=== PATIENT | male | born 1955 | race Caucasian/White ===

== ENCOUNTER → 2018-09-25 | Outpatient (CLI) | payer BC ==
--- NOTE | 2018-09-25 14:52 | XR ---
Abdomen HISTORY: Right lower quadrant pain and hematuria Frontal view of the abdomen on 2 images Lung bases are clear. There is no evident bowel obstruction or pneumoperitoneum. No pathologic calcif ication is evident. Mild osteoarthritic change present in the right hip. IMPRESSION: Nonspecific bowel gas pattern.
== END | disposition home or self-care (01) ==
LOC: RADXRYALE 09:58
PROVIDERS: ATTEND Family Medicine
DX: R10.813 Right lower quadrant abdominal tenderness (principal); R31.29 Other microscopic hematuria
CPT/HCPCS: 74018

== ENCOUNTER → 2018-10-01 | Outpatient (CLI) | payer BC ==
--- NOTE | 2018-10-01 15:09 | MR ---
EXAMINATION TYPE: MR shoulder RT wo con DATE OF EXAM: 10/01/2018 COMPARISON: None HISTORY: Pain in right shoulder TECHNIQUE: Multiplanar, multisequence imaging of the right shoulder is performed without contrast. FINDINGS: Postsurgical changes with susceptibility artifact are at the shoulder. Rotator Cuff: No muscle retraction is evident. There may be some mild fatty infiltration of the supra spinatus and infraspinatus muscles. However, no tendon rupture or retraction is evident. There is sug gestion of small perforation near the junction of these 2 tendons on the sagittal images. Series 601 image 18 Acromioclavicular Joint: Mild acromioclavicular joint hypertrophy is present. Glenohumeral Joint: Humerus articulates with the glenoid. Labrum: Posterior glenoid labrum is poorly visualized. Anterior superior glenoid labrum appear intact Biceps Tendon: The long head of biceps tendon is in the bicipital groove. Tendon appears somewhat sma ll. Bone marrow signal: No focal abnormal marrow signal is appreciated. Other: No significant joint effusion is evident. No significant fluid in the subacromial bursa or sub deltoid bursa present IMPRESSION: 1. Postsurgical changes from prior. 2. Changes suggestive for perforation of the supraspinatus tendon near the junction with the infraspi natus tendon.
== END | disposition home or self-care (01) ==
LOC: RADMRIMAIN 09:23
PROVIDERS: ATTEND Orthopaedic Surgery
DX: M25.511 Pain in right shoulder (principal); Z98.890 Other specified postprocedural states

== ENCOUNTER → 2018-10-14 | Outpatient (CLI) | payer BC ==
[2018-10-14 08:05] LABS: Potassium 4.5 mmol/L (3.5-5.1)
[2018-10-14 08:11] LABS: Basophils % (A) 1 %; Eosinophils # (A) 0.2 k/uL (0-0.7); Eosinophils % (A) 4 %; HCT 48.3 % (39.0-53.0); HGB 15.9 gm/dL (13.0-17.5); Lymphocytes # (A) 1.9 k/uL (1.0-4.8); Lymphocytes % (A) 35 %; MCH 30.1 pg (25.0-35.0); MCV 91.1 fL (80.0-100.0); Mean Platelet Volume 7.7; Monocytes # (A) 0.3 k/uL (0-1.0); Monocytes % (A) 6 %; Neutrophils # (A) 2.7 k/uL (1.3-7.7); Neutrophils % (A) 51 %; Platelet Count 210 k/uL (150-450); RDW 13.8 % (11.5-15.5); WBC 5.4 k/uL (3.8-10.6)
== END | disposition home or self-care (01) ==
LOC: LABPAT 07:12
PROVIDERS: ATTEND Orthopaedic Surgery
DX: Z01.818 Encounter for other preprocedural examination (principal); M75.41 Impingement syndrome of right shoulder; Z01.812 Encounter for preprocedural laboratory examination
CPT/HCPCS: 36415; 80051; 85025; 93005

== ENCOUNTER 2018-10-29 05:44 | Day surgery (SDC) | payer BC ==
[2018-10-20 14:04] VITALS: BMI 37.8
--- NOTE | 2018-10-28 14:36 | HP ---
HISTORY AND PHYSICAL DATE OF SURGERY: 10/29/2018 Baron Roca is a 63-year-old patient seen with progressive right shoulder pain. We discussed treatment options with him. He elected to proceed with arthroscopy. Consent was obtained. PAST MEDICAL HISTORY: Hypertension. PAST SURGICAL HISTORY: Right shoulder arthroscopy. DAILY MEDICATION: Norvasc. ALLERGIES: PENICILLIN. SOCIAL HISTORY: Denies tobacco use. PHYSICAL EVALUATION RIGHT SHOULDER: Flexion 150 degrees, abduction 130 degrees, external rotation is 30 degrees with weakness and pain and tenderness along the anterolateral acromion rotator cuff insertion site. Impingement sign is positive at 90 degrees. Drop-arm sign is positive. Distal neurovascular exam is intact. RADIOGRAPHS: Right shoulder revealed a type 2 anterior acromion. Cystic changes of the greater tuberosity. A right shoulder MRI revealed a perforation through the rotator cuff. IMPRESSION: 1. Right shoulder impingement with rotator cuff tear. 2. Hypertension. PLAN: Right shoulder arthroscopy with subacromial decompression, possible arthroscopic rotator cuff repair, probable Alyssa procedure and debridement. MMODL / IJN: [id number] /
[~2018-10-29 05:44] MED LIST: DEXAMETHASONE SOD PHOSPHATE 10 MG/ML 1 ML VIAL IV ONE; HYDROmorphone 0.5 MG/0.5 ML SYRINGE IVP PRN; KETOROLAC 30 MG/ML 1 ML VIAL IVP SCH; LACTATED RINGERS 1,000 ML IV SCH; LIDOCAINE 1% 20 ML VIAL (10MG/ML) FOR IV START INTRADERMA PRN; METOCLOPRAMIDE 5 MG/ML 2 ML VIAL IVP PRN; ONDANSETRON 4 MG/2 ML VIAL IVP ONE; ceFAZolin 3 GM in SODIUM CHLORIDE 0.9% 100 ML IVPB ONE
[2018-10-29 06:26] VITALS: RESP 16
[2018-10-29] MEDS ORDERED: fentaNYL (PF) 50 MCG/ML 2 ML AMP IV ONE (06:43)
[2018-10-29] MEDS ORDERED: MIDAZOLAM (PF) 2 MG/2 ML VIAL IV ONE (06:43)
[2018-10-29] MEDS ORDERED: PROPOFOL 10 MG/ML 20 ML VIAL IV ONE (07:26)
[2018-10-29] MEDS ORDERED: LIDOCAINE 1% INJ 10MG/ML (20 ML MDV) ONE (07:26)
[2018-10-29] MEDS ORDERED: SUCCINYLCHOLINE CHLORIDE 100 MG/5 ML SYR IV ONE (07:26)
[2018-10-29] MEDS ORDERED: fentaNYL (PF) 50 MCG/ML 2 ML AMP ONE (07:26)
[2018-10-29] MEDS ORDERED: ROPIVACAINE 5 MG/ML 30 ML VIAL ONE (07:26)
[2018-10-29] MEDS ORDERED: DEXAMETHASONE SOD PHOSPHATE 4 MG/ML 1 ML VIAL ONE (07:26)
--- NOTE | 2018-10-29 07:51 | P.ONQ ---
Anesthesiology Proc Note - PNB - Peripheral Nerve Block Performed Right Interscalene Single Time Out Performed: Yes Procedure Start Time: 06:43 Indication: Acute Post-Operative Pain Specifically requested for management of pain by DrLeandra: Flo Suárez Sedation Type: Sedate with meaningful contact maintained Preparation: Sterile Prep Position: Supine Catheter: None Needle Types: Other (see comment) (Pajunk) Needle Size: 50mm (2") Needle Gauge: 21 Technique: Ultrasound Injectate: 0.5% Ropivacaine (see comment for volume) (20) Blood Aspirated: No Pain Paresthesia on Injection Noted: No Resistance on Injection: Normal Events: Uneventful and Well Tolerated
--- NOTE | 2018-10-29 09:27 | P.OP ---
Date of Procedure: 10/29/18 Preoperative Diagnosis: Right shoulder impingement Postoperative Diagnosis: 1. Right shoulder rotator cuff tear 2. Right shoulder impingement 3. Right shoulder acromioclavicular joint osteoarthritis 4. Right shoulder partial long head biceps tendon tear 5. Right shoulder superficial labral tear Procedure(s) Performed: 1. Right shoulder arthroscopic rotator cuff repair 2. Right shoulder arthroscopic subacromial decompression 3. Right shoulder arthroscopic Alyssa procedure 4. Right shoulder arthroscopic biceps tenotomy 5. Right shoulder arthroscopic debridement labral tear Implants: 44.75 Arthrex swivel lock anchors Anesthesia: GETA, regional (Interscalene block) Surgeon: Flo Suárez Shop Mechanic Helper #1: Wayne Araya Estimated Blood Loss (ml): 10 Pathology: none sent Condition: stable Disposition: PACU Indications for Procedure: 63-year-old patient seen with progressive right shoulder pain. After treatment options were discussed, he elected to proceed with arthroscopy. Operative Findings: See description of procedure Description of Procedure: Patient underwent an interscalene block by department of anesthesia for postoperative pain management. The patient was then taken to the operative suite. The patient underwent a general anesthetic by the department of anesthesia. The patient was placed into a lateral position and secured. There was appropriate padding of the bony prominence. Right shoulder was then prepped and draped in normal sterile orthopedic fashion. We placed the extremity in 10 pounds of longitudinal traction. A posterior incision was now made for a posterior working portal site. The trocar and cannula were inserted into the glenohumeral joint. Arthroscopy was initiated. Spinal needle was now inserted anteriorly, to ascertain the anterior working portal site. An incision was now made in that area, a trocar was inserted followed by a probe. There was some superficial tearing of the superior and anterior labrum. There was partial tearing long head biceps tendon with hyperemia. There was a well-visualized rotator cuff tear from the glenohumeral side. I performed an arthroscopic biceps tenotomy. I debrided the superficial labral tear down to stable tissue. Residual labrum was stable. Instruments now removed from the glenohumeral joint. Utilizing the posterior working portal site, the trocar and cannula were inserted into the subacromial space. Arthroscopy initiated. I made an incision 2 fingerbreadths lateral to the acromion. I introduced my trocar followed by my ArthroCare ablator. I now began ablating thick subacromial bursal tissue, which exposed the undersurface of the anterior acromion. There was diminished subacromial space. There was a very prominent anterior acromion. A motorized bur was introduced and a subacromial decompression was performed. I also excised some osteophytes off the inferior aspect of the distal clavicle. The AC joint was visualized and noted to be fairly arthritic. The motorized bur was introduced in the anterior portal site and a Alyssa procedure was performed without difficulty, decompressing the AC joint nicely. I turned my attention to the rotator cuff. There was a 22.5 cm rotator cuff tear. I debrided the margins getting down to stable tendon tissue. I introduced my motorized bur and abraded the footprint area, getting some petechial bleeding. I now made an accessory portal site off the lateral aspect of the acromion. I punched 2 holes medial for medial row fixation with the assistance of Warren MANCIA carefully tapping the punch with a mallet as I held the punch and the camera. I now introduced both anchors into the pre-punched holes and Warren MANCIA tapped them with the mallet as I held anchors and the camera. Warren MANCIA now screwed the anchors in place a while I held the anchor guide and camera. All 8 limbs of suture were now passed through good bites of rotator cuff tendon. I now punched 2 holes for lateral row fixation again I held the punch and camera while Warren MANCIA used a mallet to tap in the punch. We now passed sutures through both anchors and individually I introduced the anchors into the pre-punc h holes I held the anchor guide in position with one hand holding the camera with the other hand while Warren MANCIA tensioned the sutures and screwed in the anchors one at a time. All residual suture limbs were now clipped. We had good compression of the tendon along the entire footprint. I injected 1 mL Renue intra-articular. Instruments now removed from the portal sites. All portal sites were approximated with nylon suture. Sterile dressings were applied followed by a shoulder immobilizer. Wayne MANCIA assisted in this complex case. The patient was awakened, transferred to a bed, and taken to recovery in stable condition.
[2018-10-29 09:29] VITALS: TEMP 97.6
[2018-10-29 10:48] VITALS: BP 118/79; PULSE 70
== END 2018-10-29 11:23 | disposition home or self-care (01) ==
LOC: OR 05:44
PROVIDERS: ATTEND Orthopaedic Surgery
DX: M75.101 Unspecified rotator cuff tear or rupture of right shoulder, not specified as traumatic (principal); M75.41 Impingement syndrome of right shoulder; M19.011 Primary osteoarthritis, right shoulder; S46.111A Strain of muscle, fascia and tendon of long head of biceps, right arm, initial encounter; S43.431A Superior glenoid labrum lesion of right shoulder, initial encounter; X58.XXXA Exposure to other specified factors, initial encounter; M25.711 Osteophyte, right shoulder; G47.33 Obstructive sleep apnea (adult) (pediatric); Z99.89 Dependence on other enabling machines and devices; I10 Essential (primary) hypertension; Z79.899 Other long term (current) drug therapy; Z88.0 Allergy status to penicillin
CPT/HCPCS: 64415; 29826; 29827; 29824; C1713 ×2; C1765; J1100 ×2; J2405; J2001; J3010; J2795; J0330; J2704; J2250

== ENCOUNTER → 2019-02-09 | Outpatient (CLI) | payer BC ==
--- NOTE | 2019-02-09 10:41 | XR ---
EXAMINATION TYPE: XR knee complete RT DATE OF EXAM: 02/09/2019 COMPARISON: NONE HISTORY: Pain TECHNIQUE: Four views are submitted. FINDINGS: A mild narrowing of the patellofemoral joint and medial compartment of the knee joint. Tiny spurs inv olving the patella. Small suprapatellar bursal fluid collection.. Osseous structures are intact. No acute fracture seen. IMPRESSION: 1. No acute fracture or dislocation. 2. Mild arthropathy.
== END | disposition home or self-care (01) ==
LOC: RADXRYALE 10:03
PROVIDERS: ATTEND Physician Assistant Medical
DX: M17.11 Unilateral primary osteoarthritis, right knee (principal)

== ENCOUNTER → 2019-03-02 | Outpatient (CLI) | payer BC ==
--- NOTE | 2019-03-02 07:32 | MR ---
EXAMINATION TYPE: MR knee RT wo con DATE OF EXAM: 03/02/2019 COMPARISON: Right knee x-rays February 09, 2019 HISTORY: Pain in right knee per order. Pain and swelling for 1 month per patient. TECHNIQUE: Multiplanar, multisequence images of the knee is performed without IV contrast. FINDINGS: MEDIAL MENISCUS: Anterior horn is intact without tear. Triangular-shaped increased signal posterior h orn extends towards central body sagittal image 6, does not definitively extend to articular surface. LATERAL MENISCUS: Anterior and posterior horns are intact without tear. CRUCIATE LIGAMENTS: The anterior and posterior cruciate ligaments are intact and unremarkable. COLLATERAL LIGAMENTS: The medial collateral ligament and lateral collateral ligament complex are inta ct and unremarkable. EXTENSOR MECHANISM: Visualized quadriceps and patellar tendons are intact. EFFUSION: Moderate to large size suprapatellar joint effusion. POPLITEAL CYST: No popliteal/forte cyst. TRICOMPARTMENT SPACES: Mild to moderate tricompartment joint space loss with mild patellofemoral comp artment spurring. Mild tibial condylar spurring. CARTILAGE: Some thinning and fissuring of articular cartilage medial tibiofemoral compartment. BONE MARROW SIGNAL: No focal abnormal marrow signal is appreciated. OTHER: Focus of increased signal or edema involving the bicep femoris muscle immediately posterior to the fibular head. IMPRESSION: 1. Intrasubstance tear posterior horn of medial meniscus. Otherwise no meniscal or ligamentous tear is seen. 2. Mild to moderate tricompartment degenerative changes as detailed above. 3. Muscular edematous changes posterior to the fibular head at level of biceps femoris muscle, correl ate for possible recent contusion injury. 4. Moderate to large-sized suprapatellar joint effusion.
== END ==
LOC: RADMRIMAIN 06:03
PROVIDERS: ATTEND Orthopaedic Surgery
DX: S83.241A Other tear of medial meniscus, current injury, right knee, initial encounter (principal); M17.11 Unilateral primary osteoarthritis, right knee

== ENCOUNTER → 2019-03-11 | Outpatient (CLI) | payer BC ==
[2019-03-11 17:07] LABS: Basophils % (A) 1 %; Eosinophils # (A) 0.1 k/uL (0-0.7); Eosinophils % (A) 2 %; HCT 47.8 % (39.0-53.0); HGB 15.9 gm/dL (13.0-17.5); Lymphocytes # (A) 1.9 k/uL (1.0-4.8); Lymphocytes % (A) 27 %; MCH 31.3 pg (25.0-35.0); MCHC 33.2 g/dL (31.0-37.0); MCV 94.3 fL (80.0-100.0); Monocytes # (A) 0.4 k/uL (0-1.0); Monocytes % (A) 5 %; Neutrophils # (A) 4.5 k/uL (1.3-7.7); Neutrophils % (A) 63 %; Platelet Count 208 k/uL (150-450); RBC 5.07 m/uL (4.30-5.90); WBC 7.2 k/uL (3.8-10.6)
== END | disposition home or self-care (01) ==
LOC: LABPAT 16:18
PROVIDERS: ATTEND Orthopaedic Surgery
DX: Z01.812 Encounter for preprocedural laboratory examination (principal); M23.91 Unspecified internal derangement of right knee
CPT/HCPCS: 80051; 85025

== ENCOUNTER 2019-03-19 12:58 | Day surgery (SDC) | payer BC ==
[2019-03-17 11:21] VITALS: BMI 38.6
--- NOTE | 2019-03-18 13:39 | HP ---
HISTORY AND PHYSICAL Surgery is scheduled for 03/19/2019. Baron Roca is a 64-year-old patient who was seen with progressive right knee pain. We discussed treatment options with him. He elected to proceed with right knee arthroscopy. Consent was obtained. PAST MEDICAL HISTORY: Hypertension. PAST SURGICAL HISTORY: Right shoulder arthroscopy. DAILY MEDICATIONS: Norvasc. ALLERGIES: PENICILLIN. SOCIAL HISTORY: Denies tobacco use. PHYSICAL EXAMINATION: Physical evaluation of the right knee: His right knee range of motion 0-120. Moderate effusion. Tenderness medial joint line. Positive medial Prema's. Ligaments stable. Hip rotation without pain. Distal neurovascular exam intact. Radiographs of the right knee revealed evidence for moderate medial compartment osteoarthritis. MRI of the right knee revealed medial meniscal tear as well as osteoarthritic changes and joint effusion. IMPRESSION: 1. Internal derangement right knee with medial meniscal tear. 2. Right knee osteoarthritis. 3. Hypertension. PLAN: Right knee arthroscopy with partial meniscectomy and debridement. MMODL / IJN: [id number] /
[~2019-03-19 12:58] MED LIST changes: -KETOROLAC 30 MG/ML 1 ML VIAL IVP SCH; -LIDOCAINE 1% 20 ML VIAL (10MG/ML) FOR IV START INTRADERMA PRN; -METOCLOPRAMIDE 5 MG/ML 2 ML VIAL IVP PRN; +MIDAZOLAM 2 MG/2 ML VIAL IV PRN
[2019-03-19] MEDS ORDERED: LIDOCAINE 1% 20 ML VIAL (10MG/ML) FOR IV START INTRADERMA ONE (13:25)
[2019-03-19] MEDS ORDERED: ePHEDrine SULFATE/0.9% NACL/PF 50 MG/5 ML SYRINGE IV ONE (13:37)
[2019-03-19] MEDS ORDERED: LIDOCAINE 1% INJ 10MG/ML (20 ML MDV) ONE (13:37)
[2019-03-19] MEDS ORDERED: MIDAZOLAM 2 MG/2 ML VIAL ONE (13:37)
[2019-03-19] MEDS ORDERED: SUCCINYLCHOLINE CHLORIDE 100 MG/5 ML SYR IV ONE (13:37)
[2019-03-19] MEDS ORDERED: KETOROLAC 30 MG/ML 1 ML VIAL ONE (13:37)
[2019-03-19] MEDS ORDERED: HYDROmorphone (PF) 1 MG/ML ONE (13:37)
[2019-03-19] MEDS ORDERED: fentaNYL (PF) 50 MCG/ML 2 ML AMP ONE (13:37)
[2019-03-19] MEDS ORDERED: PROPOFOL 10 MG/ML 20 ML VIAL IV ONE (13:37)
[2019-03-19] MEDS ORDERED: BUPIVACAINE (PF) 0.25% 30 ML VIAL INTRAARTIC ONE (13:38)
[2019-03-19] MEDS ORDERED: LACTATED RINGERS 1,000 ML IV ONE ×2 (14:27)
--- NOTE | 2019-03-19 14:32 | P.OP ---
Date of Procedure: 03/19/19 Preoperative Diagnosis: Internal derangement right knee Postoperative Diagnosis: 1. Tear medial meniscus right knee 2. Grade 2/3 chondromalacia medial femoral condyle right knee 3. Reactive synovitis medial and suprapatellar compartments right knee Procedure(s) Performed: 1. Arthroscopic partial medial meniscectomy right knee 2. Arthroscopic chondroplasty medial femoral condyle right knee 3. Arthroscopic partial synovectomy medial and suprapatellar compartments right knee Anesthesia: VIRYA, local Surgeon: Flo Suárez Estimated Blood Loss (ml): 7 Pathology: none sent Condition: stable Disposition: PACU Indications for Procedure: 64-year-old patient seen with progressive right knee pain. After treatment options were discussed, he elected to proceed with arthroscopy. Operative Findings: See description of procedure Description of Procedure: Patient was taken to the operative suite. Patient underwent a general anesthetic by the department of anesthesia. Patient was given preoperative antibiotics. The right lower extremity was placed in a well-padded arthroscopic leg snider. The right leg was prepped and draped in the normal sterile orthopedic fashion. A lateral parapatellar and suprapatellar incision was made. Trochars were inserted. Arthroscopy was initiated. Suprapatellar pouch revealed diffuse thick reactive synovitis. The patellofemoral joint appeared to articulate congruently. There was grade 1/2 chondromalacia of the patellofemoral joint with no osteochondral tears present. The scope was guided into the medial gutter. No loose bodies or plica were identified. The scope was then guided into the medial compartment. A medial parapatellar incision was made. Trocar inserted followed by probe. There was a complex tear involving the posterior horn of the medial meniscus. There was grade 2/3 chondromalacia of the medial femoral condyle with some osteochondral flap tears present. There was thick reactive synovitis anteriorly. I performed a partial medial meniscectomy getting down to stable meniscal tissue. I performed a chondroplasty of the medial femoral condyle getting down to stable osteochondral tissue. I performed a partial synovectomy decompressing the reactive synovitis anteriorly. The residual meniscus was probed and found to be stable. There was good decompression of the synovitis. The residual osteochondral surface of the femoral condyle was stable. Scope and probe were then guided into the intercondylar notch. Cruciates were identified, probed and found to be stable. The scope and probe were then guided into lateral compartment. Lateral meniscus was probed and found to be stable. There was no significant chondromalacia present. There was no reactive synovitis present. The scope was in guided back into the suprapatellar compartment. I introduced a motorized shaver into the suprapatellar compartment. I debrided some piecemeal fragments of meniscus I encountered. I performed a partial synovectomy decompressing the reactive sy novitis. The shaver was removed. I took one more look on the entire knee, no residual debris. Instruments were now removed from the joint. The joint was infiltrated with .25% Marcaine. Steri-Strips were applied to the portal sites. Sterile dressings were applied. The patient was placed into a SAM hose. No tourniquet was utilized. The patient was awakened, transferred to a bed and taken to recovery stable satisfactory condition.
[2019-03-19 14:35] VITALS: TEMP 97
[2019-03-19 14:44] VITALS: RESP 16
[2019-03-19 15:50] VITALS: BP 126/86; PULSE 81
== END 2019-03-19 16:10 | disposition home or self-care (01) ==
LOC: OR 12:58
PROVIDERS: ATTEND Orthopaedic Surgery
DX: S83.231A Complex tear of medial meniscus, current injury, right knee, initial encounter (principal); M22.41 Chondromalacia patellae, right knee; M65.861 Other synovitis and tenosynovitis, right lower leg; M17.11 Unilateral primary osteoarthritis, right knee; I10 Essential (primary) hypertension; G47.33 Obstructive sleep apnea (adult) (pediatric); Z88.0 Allergy status to penicillin; Z99.89 Dependence on other enabling machines and devices; Z79.899 Other long term (current) drug therapy; Z98.890 Other specified postprocedural states; X58.XXXA Exposure to other specified factors, initial encounter
CPT/HCPCS: 29881; 29876; J2250; J1100; J0690; J2405; J2001; J3010; J1885; J1170; J0330; J2704

== ENCOUNTER 2019-11-12 19:19 | Emergency (ER) | payer BC ==
[2019-11-12 19:27] VITALS: RESP 18; TEMP 97.9
--- NOTE | 2019-11-12 20:10 | ED ---
Neuro HPI - General Chief Complaint: Neuro Symptoms/Deficit Stated Complaint: Visual disturbance Time Seen by Provider: 11/12/19 19:50 Source: patient Mode of arrival: ambulatory Limitations: no limitations - History of Present Illness Is the patient presenting with stroke symptoms?: No Initial Comments: [age] male with history of hypertension presenting today for chief complain of large floater in the right eye. Patient states the past 3 days he has been wetting in the corner of his right eye he states it may have been longer than 3 days. He states it is almost like a veil. Patient states that this somewhat subsided however he developed a very large floater that moves in his eye almost like an insect within the eye that is dark. Denies loss of specific section of vision stating that the object moves. Denies flashes of light, trauma to the head neck. Denies speech changes, weakness of the UE or LE, facial expression changes, headache, nausea, neck or eye pain, denies eye redness. Patient denies sensation deficits, of dizziness. Patient states he feels like this is related to the eye. Denies additional complaints. Pt does wear distance glasses that are 2-3 years old. - Related Data Home Medications: Home Medications Medication Instructions Recorded Confirmed amLODIPine [Norvasc] 10 mg PO QAM 10/20/18 03/19/19 Previous Rx's Medication Instructions Recorded HYDROcodone/APAP 7.5-325MG [[place] 1 each PO Q6HR PRN #12 tab 03/19/19 7.5] Allergies/Adverse Reactions: Allergies Allergy/AdvReac Type Severity Reaction Status Date / Time Penicillins Allergy Unknown Verified 11/12/19 19:27 Childhood Review of Systems ROS Statement: Those systems with pertinent positive or pertinent negative responses have been documented in the HPI. ROS Other: All systems not noted in ROS Statement are negative. General Exam - General Exam Comments Initial Comments: General: The patient is awake and alert, in no distress. Eye: +3 mm pupils are equal, round and reactive to light, extra-ocular movements are intact. No nystagmus. There is normal conjunctiva bilaterally. No signs of icterus. Retinal exam limited to no dilation however no gross abnormality. Ultrasound bedside was performed revealing evidence of possible vitreous detachment. No significant findings suggestive of a large retinal detachment. No APD. VF intact to confrontation. OD 20/35, OS 20/20 with corrective lenses. Cardiovascular: There is a regular rate and rhythm. No murmur, rub or gallop is appreciated. Respiratory: Lungs are clear to auscultation, respirations are non-labored, breath sounds are equal. No wheezes, stridor, rales, or rhonchi. Gastrointestinal: Soft, non-distended, non-tender abdomen without masses or organomegaly noted. There is no rebound or guarding present. Musculoskeletal: Normal ROM, no tenderness. Strength 5/5. Sensation intact. Pulses equal bilaterally 2+. Neurological: A&O x 3. CN II-XII intact, There are no obvious motor or sensory deficits. Coordination appears grossly intact. Speech is normal. Skin: Skin is warm and dry and no rashes or lesions are noted. Psychiatric: Cooperative, appropriate mood & affect, normal judgment. Limitations: no limitations Stroke MDM - Medical Decision Making hx concerning for retinal detachment ongoing x 3 days Patient has no neurological deficits. Family beside who is [employer]LLER states she noted no abnormal neurological findings. Patient states it is a big floater in eye. No VF defect. I called Dr. Garcia with concern for retinal detachment, expressing this concern--given PE and history patient states that the patient may follow-up tomorrow morning in office. Patient family would like to see family friend Dr. Jacome as 7:30 AM tomorrow for evaluation. Patient US at bedside did not reveal an obvious large detachment. Return parameters discussed, patient and family member at bedside verbalized understanding and patient was discharged appearing well. Dr. Orozco attending is agreeable to this work up and care plan as well as discharge. Past Medical History Past Medical History: Hypertension, Osteoarthritis (OA), Sleep Apnea/CPAP/BIPAP Additional Past Medical History / Comment(s): CPAP use. History of Any Multi-Drug Resistant Organisms: None Reported Past Surgical History: Orthopedic Surgery Additional Past Surgical History / Comment(s): Right shoulder surgery. right knee Past Anesthesia/Blood Transfusion Reactions: No Reported Reaction Past Psychological History: No Psychological Hx Reported Smoking Status: Never smoker Past Alcohol Use History: Occasional Past Drug Use History: None Reported - Past Family History Mother Family Medical History: Cancer Father Family Medical History: Cancer Course Vital Signs 11/12/19 11/12/19 19:20 21:20 Temperature 97.9 F Pulse Rate 70 72 Respiratory 18 18 Rate Blood Pressure 171/97 143/83 O2 Sat by Pulse 98 98 Oximetry Disposition Clinical Impression: Floaters in visual field Disposition: HOME SELF-CARE Condition: Good Instructions (If sedation given, give patient instructions): Visual Floaters (ED), Surgery for Retinal Detachment (DC) Additional Instructions: Please use medication as discussed. Please follow-up with ophthalmology at 7:30AM as scheduled with Dr. Jacome. Please return to emergency room if the symptoms increase or worsen or for any other concerns. Is patient prescribed a controlled substance at d/c from ED?: No Referrals: Memo Stewart DO [Primary Care Provider] - 1-2 days Angel Jacome MD [STAFF PHYSICIAN] - 1-2 days Time of Disposition: 20:52
[2019-11-12 21:20] VITALS: BP 143/83; PULSE 72
== END 2019-11-12 21:19 | disposition home or self-care (01) ==
LOC: EC 19:19
DX: H43.391 Other vitreous opacities, right eye (principal); I10 Essential (primary) hypertension; G47.30 Sleep apnea, unspecified; Z79.899 Other long term (current) drug therapy; Z88.0 Allergy status to penicillin; Z99.89 Dependence on other enabling machines and devices
CPT/HCPCS: 99283

== ENCOUNTER → 2022-08-30 | Outpatient (CLI) | payer MEDICARE ==
--- NOTE | 2022-08-30 11:22 | XR ---
EXAM TYPE: LUMBAR SPINE X RAY SERIES COMPARISON: NONE HISTORY: Pain TECHNIQUE: 4 views are submitted. FINDINGS: Alignment is anatomic. The pedicles are intact. The transverse processes are intact. There is bre re degenerative change L5-S1 facet arthropathy. There is bilateral foraminal encroachment. Hypertroph ic degenerative changes are seen with mild degenerative disc disease L3-4 and L4-5. Spurring is seen along the upper lumbar spine and thoracolumbar junction. Of the lumbar spine. No spondylolisthesis or spondylolysis. IMPRESSION: 1. Severe degenerative disc disease L5-S1 with multilevel facet arthropathy. Suspect multilevel yuniel inal encroachment. Recommend follow-up MRI
== END | disposition home or self-care (01) ==
LOC: RADXRYALE 09:28
PROVIDERS: ATTEND Physician Assistant
DX: M51.17 Intervertebral disc disorders with radiculopathy, lumbosacral region (principal); M47.27 Other spondylosis with radiculopathy, lumbosacral region
CPT/HCPCS: 72110

== ENCOUNTER → 2022-09-26 | Outpatient (CLI) | payer MEDICARE ==
--- NOTE | 2022-09-28 06:42 | MR ---
EXAMINATION TYPE: MR lumbar spine wo con DATE OF EXAM: 09/26/2022 COMPARISON: Lumbar spine x-rays August 30, 2022 HISTORY: Low back pain that radiates down left leg for years. Intervertebral disc degeneration per jacey fischer. TECHNIQUE: Multiplanar, multisequence imaging of the lumbar spine is performed without IV contrast. FINDINGS: Sagittal images of the lumbar spine show vertebral body heights and alignment to remain sta ble and satisfactory. The intervertebral discs demonstrate multilevel disc desiccation with disc spac e heights are preserved. The conus medullaris is normal in position and signal ending at L1-L2 disc space level. The bone marrow signal intensity is within normal limits. Axial images show T12-L1 through L2-L3 levels to appear within normal limits. Axial images at L3-L4 level shows broad-based left foraminal/lateral disc protrusion causing asymmetr ic mild left anterior inferior neural foraminal narrowing encroaching in close proximity to the extra foraminal left L3 nerve axial image 13 for reference. Spinal canal is preserved. Axial images at L4-L5 level show mild facet arthropathy and mild broad disc bulge minimally effacing anterior thecal sac. In addition there is more prominent left foraminal disc protrusion axial image 9 measuring 12 mm transversely by 4 to 5 mm AP diameter causing advanced left-sided neural foraminal n arrowing and effacement of the left L4 nerve correlating with sagittal image 6. Patent right-sided ne ural foramina. Axial images at L5-S1 level shows mild facet arthropathy bilaterally. Spinal canal is preserved. Bila teral neural foramina are patent. IMPRESSION: The L4-L5 findings correlate with patient's left-sided radiculopathy type symptoms due to prominent eccentric disc herniation as detailed above.
== END | disposition home or self-care (01) ==
LOC: RADMRIMAIN 14:56
PROVIDERS: ATTEND Family Medicine
DX: M47.27 Other spondylosis with radiculopathy, lumbosacral region (principal); M51.16 Intervertebral disc disorders with radiculopathy, lumbar region; M99.73 Connective tissue and disc stenosis of intervertebral foramina of lumbar region
CPT/HCPCS: 72148

== ENCOUNTER → 2022-10-25 | Outpatient (CLI) | payer MEDICARE ==
--- NOTE | 2022-10-25 18:16 | XR ---
EXAMINATION TYPE: XR chest 2V DATE OF EXAM: 10/25/2022 COMPARISON: 10/09/2011 HISTORY: 67 year-old male [id number], preoperative evaluation TECHNIQUE: Frontal and lateral views FINDINGS: Heart is borderline enlarged. Aorta and pulmonary vasculature are within normal limits. Bridging ante rior endplate sclerosis midthoracic spine. No consolidation or pleural effusion. IMPRESSION: Borderline cardiomegaly. No acute process seen.
== END | disposition home or self-care (01) ==
LOC: RADXRYALE 09:12
PROVIDERS: ATTEND Physician Assistant
DX: Z01.818 Encounter for other preprocedural examination (principal); I51.7 Cardiomegaly
CPT/HCPCS: 71046

== ENCOUNTER → 2023-02-13 | Outpatient (CLI) | payer MEDICARE ==
--- NOTE | 2023-02-13 13:50 | XR ---
EXAM TYPE: LUMBAR SPINE X RAY SERIES COMPARISON: 08/31/1999 HISTORY: Pain TECHNIQUE: 4 views are submitted. FINDINGS: Postsurgical change with transpedicular screws at levels L3-4 and L4-5. Disc spacers noted. Severe degenerative disc disease L5-S1. Hypertrophic spurring and retrolisthesis of L2 relative to L3 is similar to prior exam. IMPRESSION: 1. Postoperative changes L3-L5. 2. Severe degenerative disc disease L5-S1. 3. Retrolisthesis of L2 relative to L3 similar to prior exam.
== END | disposition home or self-care (01) ==
LOC: RADXRYALE 08:42
PROVIDERS: ATTEND Neurological Surgery
DX: M51.26 Other intervertebral disc displacement, lumbar region (principal); M43.26 Fusion of spine, lumbar region; M51.37 Other intervertebral disc degeneration, lumbosacral region; M43.16 Spondylolisthesis, lumbar region; Z98.890 Other specified postprocedural states
CPT/HCPCS: 72100

== ENCOUNTER → 2024-11-10 | Outpatient (CLI) | payer MEDICARE ==
--- NOTE | 2024-11-11 06:51 | MR ---
EXAMINATION TYPE: MR knee LT wo con DATE OF EXAM: 11/10/2024 COMPARISON: Outside left knee x-ray October 28, 2024 HISTORY: Left knee medial pain for 1 month. TECHNIQUE: Multiplanar, multisequence images of the knee is performed without IV contrast. FINDINGS: MEDIAL MENISCUS: Truncated appearance posterior horn with abnormal signal inferiorly extending to art icular surface inferiorly. LATERAL MENISCUS: Anterior and posterior horns are intact without tear. CRUCIATE LIGAMENTS: The anterior and posterior cruciate ligaments are intact and unremarkable. COLLATERAL LIGAMENTS: The medial collateral ligament and lateral collateral ligament complex are inta ct. Fluid signal surrounds the medial collateral ligament. EXTENSOR MECHANISM: Visualized quadriceps and patellar tendons are intact. Clea-dw-yiymxaom superfici al prepatellar and infrapatellar subcutaneous edema. EFFUSION: No significant suprapatellar joint effusion. POPLITEAL CYST: No popliteal/forte cyst. TRICOMPARTMENT SPACES: Mild to moderate tricompartment joint space loss and mild spurring CARTILAGE: Some cartilaginous loss medial tibial femoral compartment. BONE MARROW SIGNAL: No focal abnormal marrow signal is appreciated. OTHER: Varicose veins are present medially. IMPRESSION: 1. Full-thickness tear posterior horn of medial meniscus. 2. Mild to moderate tricompartmental degenerative changes as detailed above likely on basis of osteoa rthritis. 3. Moderate MCL sprain injury. [facility], , 11/11/2024 6:49 AM
== END | disposition home or self-care (01) ==
LOC: RADMRIMAIN 19:05
PROVIDERS: ATTEND Orthopaedic Surgery
DX: S83.242A Other tear of medial meniscus, current injury, left knee, initial encounter (principal); M17.12 Unilateral primary osteoarthritis, left knee; S83.412A Sprain of medial collateral ligament of left knee, initial encounter

== ENCOUNTER → 2024-11-17 | Outpatient (CLI) | payer MEDICARE ==
[2024-11-17 19:49] LABS: HCT 47.1 % (39.6-50.0); HGB 15.7 g/dL (13.0-17.0); MCH 30.8 pg (27.0-32.0); MCHC 33.3 g/dL (32.0-37.0); MCV 92.4 FL (80.0-97.0); Mean Platelet Volume 9.8 FL (9.5-12.2); NRBC Per 100 WBC 0 X 10*3/uL (0.00-0.01); Platelet Count 213 X 10*3/uL (140-440); RDW 12.4 % (11.5-14.5); WBC 9.77 X 10*3/uL (4.50-10.00)
[2024-11-17 19:50] LABS: Basophils # (A) 0.04 X 10*3/uL (0.00-0.10); Basophils % (A) 0.4 %; Eosinophils # (A) 0.18 X 10*3/uL (0.04-0.35); Eosinophils % (A) 1.8 %; Lymphocytes # (A) 2.42 X 10*3/uL (0.90-5.00); Lymphocytes % (A) 24.8 %; Monocytes % (A) 7.2 %; Neutrophils # (A) 6.39 X 10*3/uL (1.80-7.70); Neutrophils % (A) 65.4 %
[2024-11-17 20:29] LABS: Anion Gap 12.9 mmol/L (4.00-12.00); Carbon Dioxide 26.1 mmol/L (21.6-31.8)
== END | disposition home or self-care (01) ==
LOC: LABPAT 15:13
PROVIDERS: ATTEND Orthopaedic Surgery
DX: M23.92 Unspecified internal derangement of left knee (principal)
CPT/HCPCS: 36415; 80051; 85025; 93005

== ENCOUNTER 2024-12-16 08:10 | Day surgery (SDC) | payer MEDICARE ==
[~2024-12-16 08:10] MED LIST changes: -DEXAMETHASONE SOD PHOSPHATE 10 MG/ML 1 ML VIAL IV ONE; -LACTATED RINGERS 1,000 ML IV SCH; -MIDAZOLAM 2 MG/2 ML VIAL IV PRN; -ONDANSETRON 4 MG/2 ML VIAL IVP ONE; -ceFAZolin 3 GM in SODIUM CHLORIDE 0.9% 100 ML IVPB ONE
[2024-12-16] MEDS: IV FLUID CONTINUATION 1,000 ML IV ONE (08:10)
[2024-12-16 08:47] LABS: Glucose,Whole Blood 115 mg/dL (70-110)
[2024-12-16] MEDS: ONDANSETRON 4 MG/2 ML VIAL IVP ONE (08:49)
[2024-12-16] MEDS: LACTATED RINGERS 1,000 ML IV SCH (08:49)
[2024-12-16] MEDS: BUPIVACAINE (PF) 0.25% 30 ML VIAL SQ ONE ×2 (09:22→10:09)
[2024-12-16] MEDS ORDERED: LIDOCAINE 1% INJ 10MG/ML (20 ML MDV) ONE (09:25)
[2024-12-16] MEDS ORDERED: fentaNYL (PF) 50 MCG/ML 2 ML AMP ONE (09:25)
[2024-12-16] MEDS ORDERED: SUCCINYLCHOLINE CHLORIDE 200 MG/10 ML VIAL IV ONE (09:25)
[2024-12-16] MEDS ORDERED: PROPOFOL 10 MG/ML 20 ML VIAL IV ONE (09:25)
--- NOTE | 2024-12-16 10:26 | P.OP ---
Date of Procedure: 12/16/24 Preoperative Diagnosis: Internal derangement left knee Postoperative Diagnosis: 1. Tear medial and lateral meniscus left knee 2. Grade IV chondromalacia femoral sulcus left knee 3. Reactive synovitis medial, lateral and suprapatellar compartments left knee 4. 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 Grade II chondromalacia patella left knee Procedure(s) Performed: 1. Arthroscopic partial medial and lateral meniscectomy left knee 2. Arthroscopic microfracture femoral sulcus left knee 3. Arthroscopic partial synovectomy medial, lateral and suprapatellar compartments left knee 4. Arthroscopic chondroplasty medial femoral condyle left knee 5. Arthroscopic chondroplasty patella left knee Anesthesia: VIRYA, local Surgeon: Flo Suárez Estimated Blood Loss (ml): 10 Pathology: none sent Condition: stable Disposition: PACU Indications for Procedure: 69-year-old patient seen with progressive left knee pain. After having treatment options discussed, he elected to proceed with arthroscopy. Operative Findings: See description of procedure Description of Procedure: Patient was taken to the operative suite. Patient underwent a general anesthetic by the department of anesthesia. Patient was given preoperative antibiotics. The left lower extremity was placed in a well-padded arthroscopic leg snider. The left leg was prepped and draped in the normal sterile orthopedic fashion. A lateral parapatellar and suprapatellar incision was made. Trochars were inserted. Arthroscopy was initiated. Suprapatellar pouch revealed diffuse thick reactive synovitis. The patellofemoral joint appeared to articulate congruently. There was grade 2 chondromalacia of the patella with some osteochondral tears present. There were grade III/IV chondromalacia changes of the femoral sulcus with tears present as well. The scope was guided into the medial gutter. No loose bodies or plica were identified. The scope was then guided into the medial compartment. A medial parapatellar incision was made. Trocar inserted followed by probe. There was a complex tear involving the posterior horn of the medial meniscus. There were grade II/III chondromalacia changes of the medial femoral condyle with osteochondral flap tears present. There was some thick reactive synovitis anteriorly. I performed a partial medial meniscectomy getting down to stable meniscal tissue. I performed a chondroplasty of the medial femoral condyle getting down to stable osteochondral tissue. I performed a partial synovectomy decompressing the reactive synovitis. The residual meniscus was stable. The residual osteochondral surface appeared stable. There was good decompression of the synovitis. Scope and probe were then guided into the intercondylar notch. Cruciates were identified, probed and found to be stable. The scope and probe were then guided into lateral compartment. There was a radial tear posterior horn lateral meniscus. There were grade I chondromalacia changes lateral compartment with no tears. There was some thick reactive synovitis anteriorly. I performed a partial lateral meniscectomy getting down to stable meniscal tissue. I performed a partial synovectomy decompressing the reactive synovitis. The residual meniscus was stable. There was good decompression of the synovitis. The scope was in guided back into the suprapatellar compartment. I introduced a motorized shaver into the suprapatellar compartment. I debrided some piecemeal fragments of meniscus I encountered. I performed a chondroplasty of the patella getting down to stable osteochondral tissue. I performed a chondroplasty of the femoral sulcus getting down to stable osteochondral tissue. I performed a partial synovectomy decompressing the reactive synovitis. I did note an area of grade IV chondromalacia involving the femoral sulcus with exposed bone measuring less than a centimeter. I introduced a microfracture awl and I performed a microfracture to that area penetrating the bone with resultant bleeding at the microfracture site. The residual osteochondral surface was stable. I now took 1 more look around the entire knee, no residual debris. Instruments were now removed from the joint. The joint was infiltrated with .25% Marcaine. Steri-Strips were applied to the portal sites. Sterile dressings were applied. The patient was placed into a SAM hose. No tourniquet was utilized. The patient was awakened, transferred to a bed and taken to recovery stable satisfactory condition.
[2024-12-16 10:31] VITALS: TEMP 96.8
[2024-12-16 11:12] VITALS: RESP 18
[2024-12-16 11:36] VITALS: BP 108/67; PULSE 67
[2024-12-16] MEDS: Acetaminophen-Codeine 300-30mg TAB PO STA (11:38)
== END 2024-12-16 12:13 | disposition home or self-care (01) ==
LOC: OR 08:10
PROVIDERS: ATTEND Orthopaedic Surgery
DX: S83.242A Other tear of medial meniscus, current injury, left knee, initial encounter (principal); S83.282A Other tear of lateral meniscus, current injury, left knee, initial encounter; M22.42 Chondromalacia patellae, left knee; M65.862 Other synovitis and tenosynovitis, left lower leg; I10 Essential (primary) hypertension; Z88.0 Allergy status to penicillin; X58.XXXA Exposure to other specified factors, initial encounter; Z79.899 Other long term (current) drug therapy
CPT/HCPCS: 29880; 29876; 29879; J0330; J0690; J2405; J2003; J3010; J2704; J0665